=== PATIENT | male | born 1955 | race African-American/Black ===

== ENCOUNTER 2016-11-08 23:19 | Emergency (ER) | payer MEDICAID ==
[~2016-11-08] VITALS: Ht 162.6 cm; Wt 68.9 kg
[~2016-11-08 23:19] MED LIST: BACTRIM-DS1 EA ORAL; CEPHALEXIN500 MG ORAL; NKM; NORCO 5-325 TA1 EACH ORAL
[2016-11-09] MEDS ORDERED: Oxycodone/Acetaminophen 5-325 ORAL ONE
[2016-11-09 00:41] LABS: BASOPHILS % (AUTO) 0.7 % (0.0-2.0); EOSINOPHILS % (AUTO) 1.7 % (0.0-3.0); LYMPHOCYTES % (AUTO) 17.5 % (20.0-45.0); MEAN CORPUSCULAR HGB CONC 33.4 G/DL (32.0-36.0); MEAN CORPUSCULAR VOLUME 93 FL (80-99); MEAN PLATELET VOLUME 9.4 FL (6.5-10.1); MONOCYTES % (AUTO) 7.9 % (1.0-10.0); NEUTROPHILS % (AUTO) 72.2 % (45.0-75.0); PLATELET COUNT 227 K/UL (150-450); RED BLOOD COUNT 4.65 M/UL (4.70-6.10); RED CELL DISTRIBUTION WIDTH 12.5 % (11.6-14.8); WHITE BLOOD COUNT 5.5 K/UL (4.8-10.8)
[2016-11-09 00:59] LABS: ALANINE AMINOTRANSFERASE 19 U/L (3-41); ANION GAP 14 (5-15); ASPARTATE AMINO TRANSFERASE 22 U/L (5-40); CALCIUM 8.7 mg/dL (8.6-10.2); CARBON DIOXIDE 25 mEQ/L (20-30); CHLORIDE 100 mEQ/L (98-107); CREATININE 1.4 mg/dL (0.7-1.2); GLOMERULAR FILTRATION RATE > 60 mL/min (>60); HEMOLYSIS 4; POTASSIUM 3.8 mEQ/L (3.4-4.9); SODIUM 139 mEQ/L (135-145); TOTAL PROTEIN 6.5 g/dL (6.6-8.7)
[2016-11-09 01:11] VITALS: BP 107/59
[2016-11-09 01:56] LABS: URIC ACID 4.3 mg/dL (3.0-7.5)
[2016-11-09 01:57] LABS: ERYTHROCYTE SEDIMENTATION RATE 20 MM/HR (0-20)
[2016-11-09] MEDS ORDERED: Morphine Sulfate 2mg/ml Inj IVP ONE (02:00)
[2016-11-09 02:57] VITALS: BP 102/57
--- NOTE | 2016-11-09 03:19 | Emergency Room Report ---
History of Present Illness General Chief Complaint: Pain Source: Patient Present Illness HPI Patient presents with non-traumatic R hip pain for several days. It is 10/10, constant and worsened when he bend at hip. No fevers. He's taken his 's [place] with good relief. Never before. It radiates to the back of his thigh and knee. No weakness. He denies back pain. No fevers or dysuria. No change in bowels. No weakness or numbness. Affects his walking. Allergic to motrin. No chest pain, dyspnea, NVD. No h/o gout or arthritis. Allergies: Coded Allergies: IBUPROFEN (Verified Allergy, 04/11/13) Patient History Past Medical History: see triage record Social History: Reports: smoking - prior Social History Narrative Reviewed Nursing Documentation: PMH: Agreed, PSxH: Agreed Nursing Documentation-PMH Past Medical History: No Stated History Review of Systems All Other Systems: negative except mentioned in HPI Physical Exam Vital Signs Date Time Temp Pulse Resp B/P Pulse Ox O2 Delivery O2 Flow Rate FiO2 11/08/16 23:29 98.2 100 16 145/78 97 Room Air Sp02 EP Interpretation: reviewed, normal General Appearance: well appearing, no apparent distress, GCS 15 Head: normocephalic Eyes: bilateral eye normal inspection ENT: moist mucus membranes Neck: supple Respiratory: lungs clear, normal breath sounds Cardiovascular #1: regular rate, rhythm Cardiovascular #2: 2+ radial (R) Gastrointestinal: normal inspection, normal bowel sounds, non tender, no mass, non-distended Musculoskeletal: back normal - but some increase when bends , gait/station normal, normal range of motion - with posterior thigh tenderness with hip flexion. No SI joint pain. Knee not tender, no calf tenderness, pelvis stable Neurologic: alert, oriented x3, motor strength/tone normal, DTRs symmetric, sensory intact Skin: normal inspection, warm/dry Medical Decision Making Diagnostic Impression: Primary Impression: Hip pain Qualified Codes: M25.551 - Pain in right hip Additional Impression: Suspected siatica ER Course Patient with non-traumatic hip pain. Ddx: gout, djd, sciatica amongst others. Inidication for labs and x-rays. Patient will be treated with percoet. Labs exclude gout and infection. Xrays with some DJD. Urine not given. States percocet "did nothing". Analgesia repeated. Improved. Repeat exam seems more consistent with sciatic component though not specific back component. Suggested further eval of back with CT or MRI. Patient stable for outpatient observation and treatment. Laboratory Tests Test 11/09/16 00:15 White Blood Count 5.5 K/UL (4.8-10.8) Red Blood Count 4.65 M/UL (4.70-6.10) L Hemoglobin 14.4 G/DL (14.2-18.0) Hematocrit 43.2 % (42.0-52.0) Mean Corpuscular Volume 93 FL (80-99) Mean Corpuscular Hemoglobin 31.0 PG (27.0-31.0) Mean Corpuscular Hemoglobin Concent 33.4 G/DL (32.0-36.0) Red Cell Distribution Width 12.5 % (11.6-14.8) Platelet Count 227 K/UL (150-450) Mean Platelet Volume 9.4 FL (6.5-10.1) Neutrophils (%) (Auto) 72.2 % (45.0-75.0) Lymphocytes (%) (Auto) 17.5 % (20.0-45.0) L Monocytes (%) (Auto) 7.9 % (1.0-10.0) Eosinophils (%) (Auto) 1.7 % (0.0-3.0) Basophils (%) (Auto) 0.7 % (0.0-2.0) Erythrocyte Sedimentation Rate 20 MM/HR (0-20) Sodium Level 139 mEQ/L (135-145) Potassium Level 3.8 mEQ/L (3.4-4.9) Chloride Level 100 mEQ/L (98-107) Carbon Dioxide Level 25 mEQ/L (20-30) Anion Gap 14 (5-15) Blood Urea Nitrogen 17 mg/dL (7-23) Creatinine 1.4 mg/dL (0.7-1.2) H Estimate Glomerular Filtration Rate > 60 mL/min (>60) Glucose Level 101 mg/dL (74-106) Uric Acid 4.3 mg/dL (3.0-7.5) Calcium Level 8.7 mg/dL (8.6-10.2) Total Bilirubin < 0.2 mg/dL (0.0-1.2) Aspartate Amino Transferase (AST) 22 U/L (5-40) Alanine Aminotransferase (ALT) 19 U/L (3-41) Alkaline Phosphatase 72 U/L (40-129) Total Creatine Kinase 122 U/L (38-174) Total Protein 6.5 g/dL (6.6-8.7) L Albumin 3.4 g/dL (3.5-5.2) L Globulin 3.1 g/dL Albumin/Globulin Ratio 1.0 (1.0-2.7) Chest X-Ray Diagnostic Results EP Interpretation: Yes Findings: no consolidation, no effusion, no pneumothorax, no acute cardiopulmonary disease Number of Views: 1 Other X-Ray Diagnostic Results Other X-Ray Diagnostic Results : X-Ray Ordered: R hip Findings: no fractures, no dislocation, no soft tissue swelling, other - some DJD Number of Views: 3 Last Vital Signs Date Time Temp Pulse Resp B/P Pulse Ox O2 Delivery O2 Flow Rate FiO2 11/09/16 03:32 98.3 77 17 102/57 98 Room Air Status: improved Disposition: HOME, SELF-CARE Condition: Improved Scripts Hydrocodone Bit/Acetaminophen 5-325* (NORCO 5-325*) 1 Each Tablet 1 TAB ORAL Q6H Y for For Pain, #10 TAB 0 Refills Prov: Jim Shabazz M.D. 11/09/16 Naproxen* (NAPROSYN*) 375 Mg Tablet 375 MG ORAL TWICE A DAY, #20 TAB 0 Refills Prov: Jim Shabazz M.D. 11/09/16 Referrals: ANNIE AU,REFERRING (PCP) Jim Shabazz M.D. Nov 09, 2016 03:19
[2016-11-09] MEDS ORDERED: NORCO 5-325 TA1 EACH ORAL (03:22)
[2016-11-09] MEDS ORDERED: NAPROXEN375 MG ORAL (03:22)
[2016-11-09 03:32] VITALS: BP 102/57
--- NOTE | 2016-11-09 11:41 | Diagnostic Imaging Report ---
Indication: PAIN Technique: One view of the chest Comparison: none Findings: Lungs and pleural spaces are clear. Heart size is normal. Impression: No acute process
--- NOTE | 2016-11-09 11:43 | Diagnostic Imaging Report ---
Indication: PAIN Technique: 2 views of the right hip Comparison: None Findings: No acute fractures. No dislocations. Joint spaces are preserved. Impression: Negative
== END 2016-11-09 03:34 | disposition home or self-care (01) ==
LOC: EMR 11-09 00:08
DX: M25.551 Pain in right hip (principal); Z88.6 Allergy status to analgesic agent; F17.200 Nicotine dependence, unspecified, uncomplicated
CPT/HCPCS: 36415; 71010; 73502; 80053; 82550; 84550; 85025; 85651; 96374; 96375; 99284; J2270; J2405

== ENCOUNTER → 2017-02-11 | Emergency (ER) | payer MEDICAID ==
[~2017-02-11] VITALS: Ht 162.6 cm; Wt 77.1 kg
[~2017-02-11] MED LIST changes: +GABAPENTIN300 MG ORAL; +NAPROXEN375 MG ORAL; +NORCO 5-325 TA1 EAC1 ORAL; +Norco 10mg/325mg tab ORAL ONE
[2017-02-11 16:02] VITALS: BP 121/76
--- NOTE | 2017-02-11 17:05 | Emergency Room Report ---
History of Present Illness General Chief Complaint: Lower Extremity Injury Source: Patient Present Illness HPI The patient is a 61-year-old male with a history of chronic back pain presenting for back pain. He denies any recent injury to the back. Pain is described as a 10 out of 10 dull ache to the mid lower back and radiates down the right leg. He states that he usually takes [place] for the pain but has run out. He has an appointment with his primary doctor within the next week. He denies any other symptoms including N, V, F , abd pain, CP, SOB Allergies: Coded Allergies: IBUPROFEN (Verified Allergy, 04/11/13) Patient History Past Medical History: see triage record Pertinent Family History: none Reviewed Nursing Documentation: PMH: Agreed, PSxH: Agreed Nursing Documentation-PMH Past Medical History: No Stated History Review of Systems All Other Systems: negative except mentioned in HPI Physical Exam Vital Signs Date Time Temp Pulse Resp B/P Pulse Ox O2 Delivery O2 Flow Rate FiO2 02/11/17 15:25 98.2 109 20 121/76 96 Room Air Sp02 EP Interpretation: reviewed, normal General Appearance: no apparent distress, alert, GCS 15, non-toxic Head: normocephalic, atraumatic Eyes: bilateral eye PERRL, bilateral eye normal inspection ENT: hearing grossly normal, normal pharynx, no angioedema, normal voice Neck: full range of motion, supple/symm/no masses Respiratory: chest non-tender, lungs clear, normal breath sounds, speaking full sentences Musculoskeletal: back normal, gait/station normal, normal range of motion, tender - TTP over the lumbar region diffusely Neurologic: alert, oriented x3, responsive, motor strength/tone normal, sensory intact, speech normal Psychiatric: judgement/insight normal, memory normal, mood/affect normal, no suicidal/homicidal ideation Skin: normal color, no rash, warm/dry, well hydrated Medical Decision Making PA Attestation Dr. Daly is my supervising physician. Patient management was discussed with my supervising physician Diagnostic Impression: Primary Impression: Sciatica Qualified Codes: M54.31 - Sciatica, right side Additional Impression: Chronic pain Qualified Codes: G89.29 - Other chronic pain ER Course The patient is a 61-year-old male with a history of chronic back pain presenting for back pain Ddx considered include but not limited to lumbar strain, degenerative disease, chronic pain, narcotic dependency PE: vitals WNL. NAD There is diffuse tender to palpation over the lumbar region. No step-offs. Normal gait. The patient will be given a limited prescription for [place] and needs to followup with primary doctor. He was informed that he needs pain management for further care. ER precautions given Last Vital Signs Date Time Temp Pulse Resp B/P Pulse Ox O2 Delivery O2 Flow Rate FiO2 02/11/17 16:31 98.2 02/11/17 16:02 78 20 121/76 96 Room Air Status: improved Disposition: HOME, SELF-CARE Condition: Improved Scripts Hydrocodone Bit/Acetaminophen 5-325* (NORCO 5-325 TABLET*) 1 Each Tablet 1 TAB ORAL Q6HR Y for For Pain, #10 TAB Prov: DAMASO JOHNSON 02/11/17 Gabapentin* (GABAPENTIN*) 300 Mg Capsule 300 MG ORAL THREE TIMES A DAY, #30 CAP 0 Refills Prov: DAMASO JOHNSON 02/11/17 Patient Instructions: Chronic Pain Additional Instructions: I discussed my findings with the patient. All questions and concerns have been answered. Treatment and medication compliance have been addressed. I advised the patient that they need to follow up with PMD in 3-5 days. Return to ED if symptoms worsen, new symptoms arise, or if needed for any reason. Patient verbalized understanding of discharge instructions. Please follow up with pain management for further care. DAMASO JOHNSON Feb 11, 2017 17:05
== END | disposition home or self-care (01) ==
LOC: EMR 16:02
DX: M54.40 Lumbago with sciatica, unspecified side (principal); Z88.6 Allergy status to analgesic agent
CPT/HCPCS: 99284

== ENCOUNTER 2017-04-10 16:07 | Inpatient (IN) | payer MEDICAID ==
[~2017-04-10] VITALS: Ht 162.6 cm; Wt 70.3 kg
[~2017-04-10 16:07] MED LIST changes: -Norco 10mg/325mg tab ORAL ONE
[2017-04-10 16:25] VITALS: BP 156/67
[2017-04-10] MEDS ORDERED: Morphine Sulfate 4mg/ml Inj IVP ONE ×2 (16:45→17:45)
[2017-04-10] MEDS ORDERED: Famotidine 20 MG/ 2ML VIAL IVP ONE (16:45)
[2017-04-10 17:15] LABS: MEAN CORPUSCULAR HGB CONC 32.5 G/DL (32.0-36.0); MEAN CORPUSCULAR VOLUME 95 FL (80-99); MEAN PLATELET VOLUME 10.2 FL (6.5-10.1); PLATELET COUNT 226 K/UL (150-450); RED BLOOD COUNT 4.81 M/UL (4.70-6.10); RED CELL DISTRIBUTION WIDTH 12.5 % (11.6-14.8); WHITE BLOOD COUNT 13.7 K/UL (4.8-10.8)
[2017-04-10 17:30] VITALS: BP 148/75
[2017-04-10 17:33] LABS: ALANINE AMINOTRANSFERASE 16 U/L (3-41); ALBUMIN/GLOBULIN RATIO 1.1 (1.0-2.7); ANION GAP 14 (5-15); ASPARTATE AMINO TRANSFERASE 25 U/L (5-40); CALCIUM 9.5 mg/dL (8.6-10.2); CARBON DIOXIDE 24 mEQ/L (20-30); CHLORIDE 103 mEQ/L (98-107); CREATININE 1.4 mg/dL (0.7-1.2); GLOMERULAR FILTRATION RATE > 60 mL/min (>60); HEMOLYSIS 49; LIPASE 24 U/L (< 60); SODIUM 141 mEQ/L (135-145); TOTAL PROTEIN 7.6 g/dL (6.6-8.7); TROPONIN I < 0.30 ng/mL (<=0.30)
[2017-04-10 17:44] LABS: CKMB 3.9 ng/mL (< 6.7)
[2017-04-10] MEDS ORDERED: Metoclopramide 10mg/2ml Inj IVP ONE (17:45)
[2017-04-10 18:24] LABS: BAND NEUTROPHILS % (MANUAL) 1 % (0-8); EOSINOPHILS % (MANUAL) 2 % (0-3); LYMPHOCYTES % (MANUAL) 13 % (20-45); NEUTROPHILS % (MANUAL) 79 % (45-75); TOTAL CELLS COUNTED 100
[2017-04-10 18:25] LABS: BASOPHILS % (MANUAL) 0 % (0-2); PLATELET ESTIMATE ADEQUATE; PLATELET MORPHOLOGY NORMAL
[2017-04-10 18:31] VITALS: BP 149/72
[2017-04-10 20:35] VITALS: BP 103/57
[2017-04-10 20:37] VITALS: BP 103/57
--- NOTE | 2017-04-10 21:39 | Emergency Room Report ---
History of Present Illness General Chief Complaint: Chest Pain Source: Patient Present Illness HPI 61-year-old male presents to ED for evaluation. Patient states he's been throwing up since this morning. Patient states there is epigastric pain, sharp , 9/10, nonradiating. Patient notes history of acid reflux. Patient states he feels chills and sweats. Denies any fever. Patient denies any chest pain or shortness of breath. Denies any sick contacts or recent travel. No other aggravating relieving factors. Denies any other associated symptoms Allergies: Coded Allergies: IBUPROFEN (Verified Allergy, 04/11/13) Patient History Past Medical History: ulcer, GERD Past Surgical History: none Pertinent Family History: none Social History: Denies: smoking, alcohol use, drug use Immunizations: UTD Reviewed Nursing Documentation: PMH: Agreed, PSxH: Agreed Nursing Documentation-PMH Past Medical History: No History, Except For Review of Systems All Other Systems: negative except mentioned in HPI Physical Exam Vital Signs Date Time Temp Pulse Resp B/P (MAP) Pulse Ox O2 Delivery O2 Flow Rate FiO2 04/10/17 16:20 97.7 56 16 140/73 100 04/10/17 16:25 Room Air Sp02 EP Interpretation: reviewed, normal General Appearance: alert, GCS 15, non-toxic, mild distress Head: normocephalic, atraumatic Eyes: bilateral eye normal inspection, bilateral eye PERRL ENT: hearing grossly normal, normal pharynx, no angioedema, normal voice Neck: full range of motion, supple/symm/no masses Respiratory: chest non-tender, lungs clear, normal breath sounds, speaking full sentences Cardiovascular #1: regular rate, rhythm, no edema Cardiovascular #2: 2+ carotid (R), 2+ carotid (L), 2+ radial (R), 2+ radial (L) , 2+ dorsalis pedis (R), 2+ dorsalis pedis (L) Gastrointestinal: normal bowel sounds, soft, non-distended, no guarding, no rebound, tenderness Rectal: deferred Genitourinary: normal inspection, no CVA tenderness Musculoskeletal: back normal, gait/station normal, normal range of motion, non- tender Neurologic: alert, oriented x3, responsive, motor strength/tone normal, sensory intact, speech normal Psychiatric: judgement/insight normal, memory normal, mood/affect normal, no suicidal/homicidal ideation Reflexes: 3+ bicep (R), 3+ bicep (L), 3+ tricep (R), 3+ tricep (L), 3+ knee (R) , 3+ knee (L) Skin: normal color, no rash, warm/dry, well hydrated Lymphatic: no adenopathy Medical Decision Making Diagnostic Impression: Primary Impression: Gastritis Qualified Codes: K29.00 - Acute gastritis without bleeding Additional Impressions: Intractable vomiting with nausea Qualified Codes: R11.2 - Nausea with vomiting, unspecified Bradycardia ER Course Hospital Course 61-year-old male presents ED complaining of abdominal pain and vomiting Differential diagnoses include: BPH, cystitis, pyelonephritis, kidney stone Clinical course Patient placed on stretcher. hall monitor. After initial history and physical I ordered labs, IV fluids, UA, pain medication and CT scan Labs - no leukocytosis, Hb/Hct stable, electrolytes ok, trop negative CT abdomen and pelvis - diverticulosis, no diverticulitis EKG initially showed sinus bradycardia with first degree block On court monitor patient became more bradycardic to the 40s. Repeat EKG showed Mobitz type I. BP remained normal Patient denies any cardiac history I believe patient needs to be admitted for further workup and evaluation case discussed with Dr Gaspar I feel this is a highly complex case requiring extensive working including EKG/ Rhythm strip, Xray/CT/US, Blood/urine lab work, repeat exams while in ED, and administration of strong opiates/narcotics for pain control, admission to hospital or close patient follow up. Diagnosis - gastritis, intractable vomiting, bradycardia admitted to [facility] in serious condition Labs Test 04/10/17 16:58 White Blood Count 13.7 K/UL (4.8-10.8) Red Blood Count 4.81 M/UL (4.70-6.10) Hemoglobin 14.9 G/DL (14.2-18.0) Hematocrit 45.9 % (42.0-52.0) Mean Corpuscular Volume 95 FL (80-99) Mean Corpuscular Hemoglobin 31.0 PG (27.0-31.0) Mean Corpuscular Hemoglobin Concent 32.5 G/DL (32.0-36.0) Red Cell Distribution Width 12.5 % (11.6-14.8) Platelet Count 226 K/UL (150-450) Mean Platelet Volume 10.2 FL (6.5-10.1) Neutrophils (%) (Auto) % (45.0-75.0) Lymphocytes (%) (Auto) % (20.0-45.0) Monocytes (%) (Auto) % (1.0-10.0) Eosinophils (%) (Auto) % (0.0-3.0) Basophils (%) (Auto) % (0.0-2.0) Differential Total Cells Counted 100 Neutrophils % (Manual) 79 % (45-75) Lymphocytes % (Manual) 13 % (20-45) Monocytes % (Manual) 5 % (1-10) Eosinophils % (Manual) 2 % (0-3) Basophils % (Manual) 0 % (0-2) Band Neutrophils 1 % (0-8) Platelet Estimate Adequate Platelet Morphology Normal Red Blood Cell Morphology Normal Sodium Level 141 mEQ/L (135-145) Potassium Level 4.0 mEQ/L (3.4-4.9) Chloride Level 103 mEQ/L (98-107) Carbon Dioxide Level 24 mEQ/L (20-30) Anion Gap 14 (5-15) Blood Urea Nitrogen 21 mg/dL (7-23) Creatinine 1.4 mg/dL (0.7-1.2) Estimat Glomerular Filtration Rate > 60 mL/min (>60) Glucose Level 106 mg/dL (74-106) Calcium Level 9.5 mg/dL (8.6-10.2) Total Bilirubin 0.6 mg/dL (0.0-1.2) Aspartate Amino Transf (AST/SGOT) 25 U/L (5-40) Alanine Aminotransferase (ALT/SGPT) 16 U/L (3-41) Alkaline Phosphatase 71 U/L (40-129) Total Creatine Kinase 294 U/L (38-174) Creatine Kinase MB 3.9 ng/mL (< 6.7) Creatine Kinase MB Relative Index 1.3 Troponin I < 0.30 ng/mL (<=0.30) Total Protein 7.6 g/dL (6.6-8.7) Albumin 4.1 g/dL (3.5-5.2) Globulin 3.5 g/dL Albumin/Globulin Ratio 1.1 (1.0-2.7) Lipase 24 U/L (< 60) EKG Diagnostic Results Rate: bradycardiac Rhythm: other - mobitz type I ST Segments: no acute changes ASA given to the pt in ED: No Rhythm Strip Diag. Results EP Interpretation: yes Rhythm: NSR, no PVC's, no ectopy CT/MRI/US Diagnostic Results CT/MRI/US Diagnostic Results : Imaging Test Ordered: CT A/P Impression diverticulosis, no diverticulitis. no other acute process Last Vital Signs Date Time Temp Pulse Resp B/P (MAP) Pulse Ox O2 Delivery O2 Flow Rate FiO2 04/10/17 20:37 97.9 70 14 103/57 97 Room Air 75 Status: improved Disposition: ADMITTED INPATIENT Condition: Serious Referrals: ANNIE AU,REFERRING (PCP) LOUIS CHOUDHARY M.D. Apr 10, 2017 21:39
[2017-04-10] MEDS ORDERED: Zolpidem 5mg tab ORAL PRN (22:30)
[2017-04-10 23:25] VITALS: BP 112/59
[2017-04-11 00:37] VITALS: BP 118/52
[2017-04-11] MEDS: D5 1/2NS 1,000 ML IV SCH ×2 (01:34→12:06)
[2017-04-11 04:00] VITALS: BP 106/65
[2017-04-11 05:23] LABS: BASOPHILS % (AUTO) 0.7 % (0.0-2.0); EOSINOPHILS % (AUTO) 1.8 % (0.0-3.0); LYMPHOCYTES % (AUTO) 25.2 % (20.0-45.0); MEAN CORPUSCULAR HEMOGLOBIN 31.6 PG (27.0-31.0); MEAN CORPUSCULAR HGB CONC 32.9 G/DL (32.0-36.0); MEAN CORPUSCULAR VOLUME 96 FL (80-99); MONOCYTES % (AUTO) 7.4 % (1.0-10.0); NEUTROPHILS % (AUTO) 64.9 % (45.0-75.0); PLATELET COUNT 196 K/UL (150-450); RED BLOOD COUNT 4.44 M/UL (4.70-6.10); RED CELL DISTRIBUTION WIDTH 12.9 % (11.6-14.8); WHITE BLOOD COUNT 9.2 K/UL (4.8-10.8)
[2017-04-11 07:43] LABS: ANION GAP 12 (5-15); CALCIUM 8.8 mg/dL (8.6-10.2); CARBON DIOXIDE 24 mEQ/L (20-30); CHLORIDE 106 mEQ/L (98-107); CREATININE 1.1 mg/dL (0.7-1.2); GLOMERULAR FILTRATION RATE > 60 mL/min (>60); HEMOLYSIS 5; POTASSIUM 3.6 mEQ/L (3.4-4.9); SODIUM 142 mEQ/L (135-145)
[2017-04-11 07:50] LABS: CHOLESTEROL 185 mg/dL (< 200); CHOLESTEROL/HDL RATIO 2.7 (3.3-4.4); LDL CHOLESTEROL (CALC.) 105 mg/dL (60-99)
[2017-04-11 08:00] VITALS: BP 117/64
[2017-04-11] MEDS: Pantoprazole Inj IV SCH (08:23)
[2017-04-11] MEDS ORDERED: Tubing IV Secondary IV ONE (10:05)
[2017-04-11] MEDS ORDERED: D5 1/2NS 1000ml IV ONE (10:05)
--- NOTE | 2017-04-11 10:21 | Diagnostic Imaging Report ---
Indication: Abdominal pain Technique: Continuous helical transaxial imaging of the abdomen and pelvis was obtained from the lung bases to the pubic symphysis during intravenous contrast administration. Coronal 2-D reformats were also obtained. Study obtained in a Siemens sensation [address] Total Dose length Product (DLP): [address] Dose Index Volume (CTDIvol): 0.15, 11.63 mGy Comparison: None Findings: Partially imaged bolus changes noted at the medial periphery of the left lower lobe. Mild subsegmental posterior basilar atelectasis demonstrated. Multiple liver cysts are present. Some hypodensities are too small to characterize. The appendix is normal. There is no free fluid or free air. Bilateral inguinal hernias containing fat are demonstrated. No evidence of bowel obstruction. Arterial calcification noted within the aorta. Kidneys are unremarkable bilaterally. No abnormalities of the spleen or pancreas identified. Impression: No acute findings in the abdomen or pelvis. Normal appendix Diverticulosis. Bilateral inguinal hernias containing fat. Mild basilar atelectasis Multiple liver hypodensities mostly appears to be cysts. Some are too small to characterize. Chronic lung changes as described above The CT scanner at is accredited by the [employer] and the scans are performed using dose optimization techniques as appropriate to a performed exam including Automatic Exposure control.
--- NOTE | 2017-04-11 10:31 | History & Physical ---
History and Physical History & Physicial HP dictated # [id number] DAVID COHN Apr 11, 2017 10:31
[2017-04-11 11:58] VITALS: BP 127/71
--- NOTE | 2017-04-11 14:34 | Cardiology Progress Note ---
Assessment/Plan Assessment/Plan [id number] atypical chest apin lasting only seond nausea / vomit ./ abd pain mobitz1 2nd degree avb loke due to increased vagal tone repeat cardiac enzyme tele has hsown resolution of darnell avb no long feel stolach sx want to go home Objective Last 24 Hour Vital Signs Date Time Temp Pulse Resp B/P (MAP) Pulse Ox O2 Delivery O2 Flow Rate FiO2 04/11/17 12:00 65 04/11/17 11:58 98.6 72 21 127/71 95 Room Air 04/11/17 08:00 74 04/11/17 08:00 97.9 75 21 117/64 96 Room Air 04/11/17 04:00 54 04/11/17 04:00 98.1 69 20 106/65 97 Room Air 04/11/17 00:40 97.9 72 16 112/59 98 Room Air 72 04/11/17 00:37 99.0 79 20 118/52 96 Room Air 04/10/17 23:25 97.9 72 16 112/59 98 Room Air 72 04/10/17 20:37 97.9 70 14 103/57 97 Room Air 75 04/10/17 20:35 97.9 75 14 103/57 97 Room Air 04/10/17 18:31 97.9 70 17 149/72 97 Room Air 04/10/17 17:30 97.8 48 22 148/75 100 Room Air 04/10/17 16:25 53 21 Room Air 04/10/17 16:25 98.0 53 21 156/67 99 Room Air 04/10/17 16:20 97.7 56 16 140/73 100 Intake and Output 04/11/17 04/12/17 19:00 07:00 Intake Total 260 ml Output Total 150 ml Balance 110 ml Intake Oral 260 ml Output Urine Total 150 ml Laboratory Tests Test 04/10/17 16:58 04/11/17 04:05 White Blood Count 13.7 K/UL (4.8-10.8) H 9.2 K/UL (4.8-10.8) Red Blood Count 4.81 M/UL (4.70-6.10) 4.44 M/UL (4.70-6.10) L Hemoglobin 14.9 G/DL (14.2-18.0) 14.0 G/DL (14.2-18.0) L Hematocrit 45.9 % (42.0-52.0) 42.6 % (42.0-52.0) Mean Corpuscular Volume 95 FL (80-99) 96 FL (80-99) Mean Corpuscular Hemoglobin 31.0 PG (27.0-31.0) 31.6 PG (27.0-31.0) H Mean Corpuscular Hemoglobin Concent 32.5 G/DL (32.0-36.0) 32.9 G/DL (32.0-36.0) Red Cell Distribution Width 12.5 % (11.6-14.8) 12.9 % (11.6-14.8) Platelet Count 226 K/UL (150-450) 196 K/UL (150-450) Mean Platelet Volume 10.2 FL (6.5-10.1) H 9.0 FL (6.5-10.1) Neutrophils (%) (Auto) % (45.0-75.0) 64.9 % (45.0-75.0) Lymphocytes (%) (Auto) % (20.0-45.0) 25.2 % (20.0-45.0) Monocytes (%) (Auto) % (1.0-10.0) 7.4 % (1.0-10.0) Eosinophils (%) (Auto) % (0.0-3.0) 1.8 % (0.0-3.0) Basophils (%) (Auto) % (0.0-2.0) 0.7 % (0.0-2.0) Differential Total Cells Counted 100 Neutrophils % (Manual) 79 % (45-75) H Lymphocytes % (Manual) 13 % (20-45) L Monocytes % (Manual) 5 % (1-10) Eosinophils % (Manual) 2 % (0-3) Basophils % (Manual) 0 % (0-2) Band Neutrophils 1 % (0-8) Platelet Estimate Adequate Platelet Morphology Normal Red Blood Cell Morphology Normal Sodium Level 141 mEQ/L (135-145) 142 mEQ/L (135-145) Potassium Level 4.0 mEQ/L (3.4-4.9) 3.6 mEQ/L (3.4-4.9) Chloride Level 103 mEQ/L (98-107) 106 mEQ/L (98-107) Carbon Dioxide Level 24 mEQ/L (20-30) 24 mEQ/L (20-30) Anion Gap 14 (5-15) 12 (5-15) Blood Urea Nitrogen 21 mg/dL (7-23) 14 mg/dL (7-23) Creatinine 1.4 mg/dL (0.7-1.2) H 1.1 mg/dL (0.7-1.2) Estimat Glomerular Filtration Rate > 60 mL/min (>60) > 60 mL/min (>60) Glucose Level 106 mg/dL (74-106) 103 mg/dL (74-106) Calcium Level 9.5 mg/dL (8.6-10.2) 8.8 mg/dL (8.6-10.2) Total Bilirubin 0.6 mg/dL (0.0-1.2) Aspartate Amino Transf (AST/SGOT) 25 U/L (5-40) Alanine Aminotransferase (ALT/SGPT) 16 U/L (3-41) Alkaline Phosphatase 71 U/L (40-129) Total Creatine Kinase 294 U/L (38-174) H Creatine Kinase MB 3.9 ng/mL (< 6.7) Creatine Kinase MB Relative Index 1.3 Troponin I < 0.30 ng/mL (<=0.30) Total Protein 7.6 g/dL (6.6-8.7) Albumin 4.1 g/dL (3.5-5.2) Globulin 3.5 g/dL Albumin/Globulin Ratio 1.1 (1.0-2.7) Lipase 24 U/L (< 60) Triglycerides Level 58 mg/dL (< 150) Cholesterol Level 185 mg/dL (< 200) LDL Cholesterol 105 mg/dL (60-99) H HDL Cholesterol 68 mg/dL (> 60) H Cholesterol/HDL Ratio 2.7 (3.3-4.4) L Thyroid Stimulating Hormone (TSH) 1.780 uIU/mL (0.300-4.500) MARIA T RUBIO Apr 11, 2017 14:34
[2017-04-11 15:59] LABS: TROPONIN I < 0.30 ng/mL (<=0.30)
[2017-04-11 16:00] VITALS: BP 121/68
--- NOTE | 2017-04-11 18:00 | History and Physical Report ---
DATE OF ADMISSION: 04/10/2017 CHIEF COMPLAINT: Nausea, vomiting and abdominal pain. History Of Present Illness: This is a 61-year-old male with history of peptic ulcer disease years ago. He came in with severe abdominal pain in the epigastric area and repeated vomiting since 9 o'clock yesterday morning. The patient started to feel a little bit dizzy after his vomiting started. He was seen in the emergency room and also was found to be somewhat bradycardic and his EKG is Mobitz type 1 and heart rate in 40s. The patient denies previous history of heart problems. He does have history of back pain for which he was taking [place], but he may have also taken naproxen, although he is not sure. Past Medical History: History of peptic ulcer disease and gastroesophageal reflux disease. MEDICATIONS: Reviewed in the EMR. ALLERGIES: The patient is intolerant to ibuprofen. Social History: No history of smoking or alcohol abuse. The patient lives with . REVIEW OF SYSTEMS: Noncontributory except what was mentioned. PHYSICAL EXAMINATION: General: This is a 61-year-old male, in no acute distress. Currently, he does not have any nausea, vomiting or abdominal pain. Vital Signs: Blood pressure 117/64, pulse 75, respiratory rate is 21, and temperature 97.9 degrees. HEENT: [place] conjunctivae. Anicteric sclerae. NECK: Supple. LUNGS: Clear to auscultation. HEART: S1 and S2 without murmurs or rubs. ABDOMEN: Soft and nontender. EXTREMITIES: No cyanosis or edema. Laboratory And Diagnostic Data: As of admission, the CBC shows a WBC of 13.7, hematocrit 42, hemoglobin 14.9, and platelets 226,000. Chemistry panel shows a sodium 141, potassium 4, chloride 103, CO2 24, glucose is 106, BUN 21, and creatinine 1.4. The repeat the serum creatinine is 1.1 today and WBC is down to 9.2. Assessment: This is a 61-year-old white male, who was admitted with abdominal pain, nausea, and vomiting. It is possible that he was taking naproxen and this has triggered his symptoms of peptic ulcer disease. Overnight, he was given IV fluids as well as IV Protonix and he has improved and currently he does not have any symptom in terms of his Mobitz 1 and this has happened in the emergency room. He does not have any underlying history of heart disease that we know. Also, his heart rate is right now in sinus rhythm and not bradycardic. Plan: The patient will be on a regular diet today. I will continue with IV Protonix and IV fluids and we will get an echocardiogram to assess LV function, also need to rule out any valve abnormality. Cardiology consult will be obtained. Gibson Gaspar M.D. DR: MARTHA JOB#: [id number] CC:
[2017-04-11 20:00] VITALS: BP 121/68
--- NOTE | 2017-04-11 21:00 | Consultation ---
DATE OF CONSULTATION: 04/11/2017 CARDIOLOGY CONSULTATION CONSULTING PHYSICIAN: Ariel Hill M.D. REFERRING PHYSICIAN: Gibson Gaspar M.D. REASON FOR REFERRAL: Bradycardia. History Of Present Illness: This is a 61-year-old gentleman, who presented to the hospital because of abdominal pain. He had some food afterwards, he felt nauseated and vomited on several occasions, developed some abdominal pain, and developed some sharp shooting chest pain that lasted only a second, but would recur on several occasions. His vomiting and abdominal pain continues, so he presented to the emergency room. Apparently, he vomited several times here. During this hospital evaluation in the emergency room, he had several bouts of Mobitz 1 first-degree AV block and therefore he was admitted to the hospital for further evaluation. He has never had syncope or near syncope, neither does he have any of those when he was experiencing nausea and vomiting yesterday. He had no PND. No orthopnea. He uses two pillows. He does have occasional dizziness when he sits up or stands up. No heart pounding or palpitations and again, no other chest pains. No exertional chest pain. He is relatively active although to a certain degree, he is able to walk and he will be able to climb some stairs, but he has to stop because of his sciatica pain related issues, but to the point that he has been able to exercise, he does not experience any chest pain or shortness of breath. Past Medical History: Negative for diabetes or high blood pressure. No heart attack, cancer, stroke, hepatitis, tuberculosis, asthma, or emphysema. He does have a history of bleeding ulcers previously. No kidney problems, liver problems, thyroid problems, or anemia. He does have some arthritis. No other medical problems. No HIV or AIDS. ALLERGIES: He is not allergic to any medications. Social History: He used to smoke, but he quit that in July. He does not drink alcoholic beverages anymore and his last use of marijuana was approximately three days ago. Review Of Systems: Gastrointestinal: As mentioned in the history of present illness. No bloody stools or black tarry stools. Genitourinary: Negative. Pulmonary: Negative. Constitutional: Negative although he does have some fevers and chills at times. Neurologic: Negative. PHYSICAL EXAMINATION: General: Shows to be middle-aged gentleman, in no apparent respiratory distress. NECK: Supple. No jugular venous distention. LUNGS: Clear to auscultation and percussion. Cardiac: S1 is normal. S2 is normal. Regular rate and rhythm. No heaves, thrills, gallops, or rubs are noted. ABDOMEN: Soft and nontender. Positive bowel sounds. EXTREMITIES: No clubbing, cyanosis, nor is there any edema. Neurologic: He is awake, alert, responsive, and in no apparent respiratory distress. Laboratory Values: Initially white count 13.7, subsequently 9.2, hemoglobin 14, and platelet count of 196,000. Sodium is 142, potassium 3.6, chloride 106, bicarb 24, BUN 14, creatinine 1.1, glucose of 103, and calcium is 8.8. Total cholesterol 185 with a LDL of 105 and HDL of 68. TSH of 1.7. Lipase of 24. Troponin less than 0.01 on first occasion and the patient's electrocardiogram he had junctional sinus rhythm, he has on several EKGs one episode of Mobitz 1 second-degree AV block with one missed beats on several of EKGs that were all performed within a few minutes of each other last evening about 5:30 or so. Subsequently, his telemetry data shows complete sinus rhythm. There was no evidence of AV block or whatsoever. ASSESSMENT: 1. Nausea, vomiting, and abdominal pain. 2. Mobitz 1 second-degree AV block likely secondary to above. 3. Chest pain. Plan: Dr. Gaspar, this patient was seen in cardiac consultation. The patient's chest pains are very atypical lasting only one second and not appeared to be exertional related. His electrocardiogram is not showing any evidence of infarction or ischemia despite AV block. The first set of cardiac enzymes were negative. He will have a second set of cardiac enzymes. He is very anxious and wants to go home. At the time of his emergency room visit, he did have a CT scan that shows no acute findings, normal appendix, diverticulosis, bilateral inguinal hernias containing fat, mild basilar atelectasis, and multiple liver hypodensity that appeared to be mostly cysts, but too small to characterize, chronic lung changes noted on the EKG. I would recommend his second set of cardiac enzymes to document at least 24 hours later. His cardiac enzymes are negative. His blocks are likely secondary to recurrent nausea, vomiting, and vagally induced more likely than arrhythmias that seems to have resolved. No further indications. He may follow up with his primary care doctor to get referred to a specialist should he have recurrent symptoms and for further evaluation. Ariel Hill M.D. DR: DEBBI JOB#: [id number] CC:
[2017-04-12] VITALS: BP 122/70
[2017-04-12] MEDS: D5 1/2NS 1,000 ML IV SCH (01:52)
[2017-04-12 04:00] VITALS: BP 116/71
[2017-04-12 08:00] VITALS: BP 111/74
[2017-04-12] MEDS: Pantoprazole Inj IV SCH (08:06)
[2017-04-12] MEDS ORDERED: PROTONIX40 M2 GT (09:52)
--- NOTE | 2017-04-12 09:57 | Consultation ---
Consult Note Assessment/Plan Dc Dictated #[id number] DAVID COHN Apr 12, 2017 09:57
--- NOTE | 2017-04-12 19:08 | Cardiology Report ---
APPROVED REPORT EKG Measurement Heart [id number] Sinus bradycardia with type I, 2nd degree AV block Otherwise normal ECG
--- NOTE | 2017-04-13 04:30 | Discharge Summary ---
DATE OF ADMISSION: 04/10/2017 DATE OF DISCHARGE: 04/12/2017 Very poor audio. Gibson Gaspar M.D. DR: STACIA JOB#: [id number] CC:
--- NOTE | 2017-04-15 15:36 | Discharge Summary ---
Discharge Summary Hospital Course Date of Admission Apr 10, 2017 at 20:59 Date of Discharge Apr 12, 2017 at 12:00 Admitting Diagnosis bradycardia, abdominal pain HPI Michaela Hughes is a 61 year old male who was admitted on Apr 10, 2017 at 20:59 for Bradycardia,Abdominal Pain Hospital Course [id number] Discharge Discharge Disposition Patient was discharged to Home (01) Discharge Diagnoses: Brynn Figueredo NP Apr 15, 2017 15:36
--- NOTE | 2017-04-16 08:31 | Discharge Summary 2 SIG ---
DATE OF ADMISSION: 04/10/2017 DATE OF DISCHARGE: 04/12/2017 TOOL OR DIE DRAWING CHECKER: Ariel Hill M.D. Brief Hospital Course: The patient is a 61-year-old male with history of peptic ulcer disease, came in complaining of severe abdominal pain located in the epigastric area with repeated vomiting since the morning of admission. The patient felt a little bit dizzy. On evaluation at ED, he was found to be bradycardic. An EKG was in Mobitz type 1 and heart rate down to 40s. He denied any previous history of heart problems and has history of back pain for which he is taking [place] and naproxen. He was given IV fluids and IV Protonix. Cardiac evaluation was done. The patient was admitted to telemetry and he had several EKGs with Mobitz type 1 second-degree AV block. Subsequently, telemetry data showed complete sinus rhythm. Chest pains were atypical lasting only a second and not appear to be exertional related. Cardiac enzymes were negative. Heart blocks likely secondary to recurrent nausea with vomiting and vagally induced more likely than arrhythmia. He was then discharged home. Abdominal and pelvic CT showed no acute findings. He was advised to follow up with PMD as outpatient. FINAL DIAGNOSES: 1. Abdominal pain, nausea, and vomiting. 2. Bradycardia with findings of heart block vagally induced secondary to nausea and vomiting. DISPOSITION: The patient was discharged home. DISCHARGE MEDICATIONS: Refer to medication list. Gibson Gaspar M.D. I have been assigned to dictate discharge summary on this account and I was not involved in the patient's management. Brynn Figueredo N.P. DR: SARA JOB#: [id number] CC:
== END 2017-04-12 12:00 | disposition home or self-care (01) | DRG 201 ==
LOC: EMR 16:25 → 2W 20:59 → EDBEDREQ 23:44 → 2E 04-11 07:28
DX: I44.1 Atrioventricular block, second degree (principal); K21.9 Gastro-esophageal reflux disease without esophagitis; R10.9 Unspecified abdominal pain; R11.2 Nausea with vomiting, unspecified; R00.1 Bradycardia, unspecified; M54.30 Sciatica, unspecified side; Z87.891 Personal history of nicotine dependence; R07.89 Other chest pain
CPT/HCPCS: 36415; 74177; 80048; 80053; 80061; 82550; 82553; 82962; 83690; 84443; 84484; 85007; 85025; 93005; 99285; J2405; J2765

== ENCOUNTER 2018-03-16 20:43 | Emergency (ER) | payer MEDICAID ==
[~2018-03-16] VITALS: Ht 162.6 cm; Wt 78.0 kg
[~2018-03-16 20:43] MED LIST changes: +PROTONIX40 M2 GT
[2018-03-16 21:16] VITALS: BP 140/89
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
[2018-03-16] MEDS ORDERED: Norco 5mg/325mg tab ORAL ONE (21:30)
[2018-03-16] MEDS ORDERED: PERCOCET 5-3251 EACH ORAL (23:11)
[2018-03-16 23:30] VITALS: BP 128/90
--- NOTE | 2018-03-17 09:16 | Diagnostic Imaging Report ---
Indication: Pain, trauma Technique: CT chest was performed utilizing automated exposure control without intravenous contrast material. Axial sagittal and coronal images were generated. CT dose: Total DLP 728.4 mGycm; CTDI vol 19 mGy Comparison: None; relation made to CT of the abdomen and pelvis 04/10/2017 Findings: Emphysematous changes noted at the apices with some small subpleural blebs. There is dependent atelectasis in the posterior lower lobes bilaterally. There is linear scarring/atelectasis in the lingula. There is no focal airspace consolidation suggest pneumonia. No evidence to suggest lung contusion. No pleural effusion or pneumothorax. Heart size within normal limits. No pericardial effusion. Thoracic aorta is normal in caliber with only minimal calcification at the arch. Main pulmonary artery appears normal in caliber. No pathologically enlarged lymphadenopathy appreciated. Imaged thyroid grossly unremarkable. Multiple low-attenuation lesions noted within the liver, similar to the prior exam. Some are large enough to be characterized as simple cysts. The others are too small for definitive characterization but also likely represent small cysts or biliary hamartomas. No acute osseous abnormalities identified. Specifically no evidence of vertebral body compression fracture. Healing right-sided rib fracture identified. IMPRESSION: * No focal airspace consolidation, pleural effusion or pneumothorax. No evidence of suggest lung contusion. * Healing fracture of the right lateral 10th rib. No acute osseous normality. * Mild emphysematous changes at the apices. * Bibasilar dependent densities favored to represent atelectasis. * Multiple low-attenuation lesions in the liver, some which can be definitively characterized as simple cysts. Others are too small for definitive characterization. This corresponds with the statrad preliminary report. The CT scanner at [facility] is accredited by the [employer] and the scans are performed using protocols designed to limit radiation exposure to as low as reasonably achievable to attain images of sufficient resolution adequate for diagnostic evaluation.
--- NOTE | 2018-03-17 12:51 | Diagnostic Imaging Report ---
Indication: Pain status post injury Technique: XRAY C Spine 2-3v Comparison: None Findings: No definite acute fracture identified. Cervical lordosis is maintained. There are degenerative changes of the cervical spine with disc space narrowing and productive change. This is most pronounced at C5-C6. No evidence of the dens fracture. Imaged lung apices grossly clear. Rectangular metallic density is noted on some of the frontal views were changes position. It is not noted on the lateral views. Is likely external to the patient. Impression: Multilevel degenerative change of the cervical spine. No evidence of acute cervical spine fracture.
--- NOTE | 2018-03-17 12:57 | Diagnostic Imaging Report ---
Indication: Pain status post trauma Technique: XRAY Wrist Complete L Comparison: None Findings: Acute, comminuted and impacted fracture of the distal radius. There is some widening of the scapholunate interval. There is narrowing of the radiocarpal joint. There is soft tissue swelling about the distal wrist. No radiopaque foreign body identified. Impression: Acute fracture of the distal radius as above.
--- NOTE | 2018-03-18 00:38 | Cardiology Report ---
APPROVED REPORT EKG Measurement Heart [id number] Normal sinus rhythm Possible Left atrial enlargement Borderline ECG
== END 2018-03-16 23:30 | disposition home or self-care (01) ==
LOC: EMR 21:16
DX: S52.502A Unspecified fracture of the lower end of left radius, initial encounter for closed fracture (principal); S20.219A Contusion of unspecified front wall of thorax, initial encounter; M54.2 Cervicalgia; Z88.6 Allergy status to analgesic agent; V49.40XA Driver injured in collision with unspecified motor vehicles in traffic accident, initial encounter; Y92.410 Unspecified street and highway as the place of occurrence of the external cause
CPT/HCPCS: 71250; 72040; 72050; 93005; 99284

== ENCOUNTER 2018-04-11 08:42 | Emergency (ER) | payer MEDICAID ==
[~2018-04-11] VITALS: Ht 167.6 cm; Wt 72.6 kg
[~2018-04-11 08:42] MED LIST changes: +PERCOCET 5-3251 EACH ORAL
[2018-04-11 08:56] VITALS: BP 129/77
--- NOTE | 2018-04-11 09:19 | Emergency Room Report ---
History of Present Illness General Chief Complaint: Earache Source: Patient Present Illness HPI The patient states that he woke up this morning with bleeding from his right ear. He denies trauma to the ear. He denies use of a Q-tip or other object in the ear. He denies other bleeding. He denies come bleeding. He denies ear pain or headache. He has no other complaints. Allergies: Coded Allergies: IBUPROFEN (Verified Allergy, 04/11/13) Patient History Past Medical History: none, see triage record Social History: Reports: smoking; Denies: alcohol use, drug use Reviewed Nursing Documentation: PMH: Agreed; PSxH: Agreed Nursing Documentation-PMH Past Medical History: No History, Except For Hx Cardiac Problems: Yes Hx Cancer: No Hx Gastrointestinal Problems: Yes - sciatica Hx Neurological Problems: No Review of Systems All Other Systems: negative except mentioned in HPI Physical Exam Vital Signs Date Time Temp Pulse Resp B/P (MAP) Pulse Ox O2 Delivery O2 Flow Rate FiO2 04/11/18 08:47 97.7 99 18 129/77 99 Room Air 97.7 Sp02 EP Interpretation: reviewed, normal General Appearance: no apparent distress, alert, GCS 15, non-toxic Head: normocephalic, atraumatic Eyes: bilateral eye normal inspection, bilateral eye PERRL ENT: hearing grossly normal, normal pharynx, no angioedema, normal voice, other - R. ear, just proximal to the entrance to the external canal inferiorly there is a skin avulsion about 2mm in size. TM normal. OTW canal WNL. Neck: full range of motion, supple/symm/no masses Respiratory: no respiratory distress, no retraction, no accessory muscle use, speaking full sentences Cardiovascular #1: no edema Rectal: deferred Musculoskeletal: back normal, gait/station normal, normal range of motion Neurologic: alert, oriented x3, responsive, motor strength/tone normal, sensory intact, speech normal Psychiatric: judgement/insight normal, memory normal, mood/affect normal, no suicidal/homicidal ideation Skin: normal color, no rash, warm/dry, well hydrated Medical Decision Making Diagnostic Impression: Primary Impression: Laceration of external auditory canal ER Course The patient has an obvious skin avulsion that likely occurred from a scratch from a fingernail. It is just at the entrance to the external canal distally. There is no evidence of infection. I did place an ear wick that was saturated in topical antibiotics. The patient is instructed to remove the wick in 2 days. He is given infection precautions. No emergency medical condition is identified. Last Vital Signs Date Time Temp Pulse Resp B/P (MAP) Pulse Ox O2 Delivery O2 Flow Rate FiO2 04/11/18 08:56 97.7 18 129/77 99 Room Air 97.7 04/11/18 08:47 99 Disposition: HOME, SELF-CARE Condition: Improved Bre Lerner DO Apr 11, 2018 09:19
[2018-04-11 10:40] VITALS: BP 131/80
== END 2018-04-11 10:40 | disposition home or self-care (01) ==
LOC: EMR 09:28
DX: S01.311A Laceration without foreign body of right ear, initial encounter (principal); H92.21 Otorrhagia, right ear; F17.290 Nicotine dependence, other tobacco product, uncomplicated; Y33.XXXA Other specified events, undetermined intent, initial encounter; Y93.9 Activity, unspecified
CPT/HCPCS: 99282

== ENCOUNTER 2018-07-21 01:37 | Emergency (ER) | payer MEDICAID ==
[~2018-07-21] VITALS: Ht 165.1 cm; Wt 77.1 kg
[2018-07-21 01:45] VITALS: BP 121/63
[2018-07-21] MEDS ORDERED: Morphine Sulfate 10mg/ml Inj IVP ONE (02:00)
--- NOTE | 2018-07-21 02:02 | Emergency Room Report ---
History of Present Illness General Chief Complaint: Abdominal Pain Source: Patient, Medical Record Present Illness HPI This is a 62-year-old male with a history of ulcer. He presents with chief complaint of epigastric pain. Onset this afternoon. Pain is sharp in nature. Localized epigastric area and radiate diffusely. Has multiple episode vomiting. Able to take his [place]. No fever chills but no diarrhea. Vomiting is nonbloody and nonbilious. Similar symptom in the past. Pain is 9 out of 10. Allergies: Coded Allergies: IBUPROFEN (Verified Allergy, Unknown, 07/21/18) Patient History Past Medical History: see triage record, old chart reviewed Past Surgical History: other Pertinent Family History: none Social History: Denies: smoking, drug use Immunizations: other Reviewed Nursing Documentation: PMH: Agreed; PSxH: Agreed Nursing Documentation-PMH Past Medical History: No History, Except For Hx Cardiac Problems: Yes Hx Cancer: No Hx Gastrointestinal Problems: Yes - GASTRIC ULCERS Hx Neurological Problems: No Review of Systems Eye: Denies: eye pain, blurred vision ENT: Denies: ear pain, nose congestion, throat swelling Respiratory: Denies: cough, shortness of breath Cardiovascular: Denies: chest pain, palpitations Gastrointestinal: Reports: abdominal pain, nausea, vomiting; Denies: diarrhea Musculoskeletal: Denies: back pain, joint pain Skin: Denies: rash Neurological: Denies: headache, numbness Endocrine: Denies: increased thirst, increased urine Hematologic/Lymphatic: Denies: easy bruising All Other Systems: negative except mentioned in HPI Physical Exam Vital Signs Date Time Temp Pulse Resp B/P (MAP) Pulse Ox O2 Delivery O2 Flow Rate FiO2 07/21/18 01:38 97.7 90 18 121/63 96 Room Air vitals normal Sp02 EP Interpretation: reviewed, normal General Appearance: well appearing, no apparent distress, alert Head: normocephalic, atraumatic Eyes: bilateral eye PERRL, bilateral eye EOMI ENT: hearing grossly normal, normal pharynx Neck: full range of motion, supple, no meningismus Respiratory: chest non-tender, lungs clear, normal breath sounds Cardiovascular #1: regular rate, rhythm, no murmur Gastrointestinal: normal bowel sounds, no mass, no organomegaly, no bruit, non- distended, tenderness - Diffuse Musculoskeletal: back normal, gait/station normal, normal range of motion Psychiatric: mood/affect normal Skin: warm/dry Medical Decision Making Diagnostic Impression: Primary Impression: Abdominal pain Qualified Codes: R10.84 - Generalized abdominal pain Additional Impressions: Cocaine abuse Nausea & vomiting Qualified Codes: R11.2 - Nausea with vomiting, unspecified Dehydration ER Course Patient with abdominal pain with nausea and vomiting. CT scan unremarkable. He is positive for cocaine. He claimed that he doesn't use cocaine but was around people on [place] use cocaine. He said somehow got into his system. His pain may be secondary to drug abuse/withdrawal. After morphine he is pain-free now. Tolerating by mouth. Is eating a sandwich and drinking without a problem. We'll discharge home. Lab Results Impression labs unremarkable CT/MRI/US Diagnostic Results CT/MRI/US Diagnostic Results : Imaging Test Ordered: CT abdomen and pelvis Impression Read by radiologist. Unremarkable. Last Vital Signs Date Time Temp Pulse Resp B/P (MAP) Pulse Ox O2 Delivery O2 Flow Rate FiO2 07/21/18 01:38 97.7 90 18 121/63 96 Room Air Status: improved Disposition: HOME, SELF-CARE Condition: Stable Scripts Omeprazole Magnesium (PRILOSEC OTC) 20 Mg Tablet. 20 MG ORAL DAILY, #30 TAB Prov: Preston Garcia MD 07/21/18 Patient Instructions: Abdominal Pain, Adult Additional Instructions: Stop using drugs. Follow-up with rehabilitation and your doctor within 7 days. Return if worse. Preston Garcia MD Jul 21, 2018 02:02
[2018-07-21 02:54] LABS: HEMATOCRIT 54.7 % (42.0-52.0); MEAN CORPUSCULAR VOLUME 94 FL (80-99); PLATELET COUNT 237 K/UL (150-450); RED BLOOD COUNT 5.79 M/UL (4.70-6.10); RED CELL DISTRIBUTION WIDTH 12.9 % (11.6-14.8)
[2018-07-21] MEDS ORDERED: Morphine Sulfate 4mg/ml Inj (IV/IM USE ONLY) IVP ONE (03:00)
[2018-07-21 03:05] LABS: ANION GAP 15 mmol/L (5-15); BLOOD UREA NITROGEN 15 mg/dL (7-18); CALCIUM 10.5 MG/DL (8.5-10.1); CARBON DIOXIDE 27 MMOL/L (21-32); CHLORIDE 102 MMOL/L (98-107); CREATININE 1.6 MG/DL (0.55-1.30); POTASSIUM 3.4 MMOL/L (3.5-5.1); SODIUM 144 MMOL/L (136-145)
[2018-07-21 03:17] LABS: ALANINE AMINOTRANSFERASE 27 U/L (12-78); ALBUMIN 4.2 G/DL (3.4-5.0); ALBUMIN/GLOBULIN RATIO 0.7 (1.0-2.7); ALKALINE PHOSPHATASE 103 U/L (46-116); ASPARTATE AMINO TRANSFERASE 25 U/L (15-37)
[2018-07-21 04:33] LABS: APPEARANCE,URINE CLEAR; BILIRUBIN, URINE NEGATIVE (NEGATIVE); GLUCOSE, URINE (UA) NEGATIVE (NEGATIVE); KETONES,URINE 4+ (NEGATIVE); LEUKOCYTE ESTERASE ,URINE 1+ (NEGATIVE); NITRITE,URINE NEGATIVE (NEGATIVE); PH,URINE 7 (4.5-8.0); PROTEIN,URINE 2+ (NEGATIVE); UROBILINOGEN,URINE 1 MG/DL (0.0-1.0)
[2018-07-21 04:42] LABS: COLOR,URINE YELLOW
[2018-07-21] MEDS ORDERED: PRILOSEC OTC20 MG ORAL (05:21)
[2018-07-21 05:25] VITALS: BP 111/63
--- NOTE | 2018-07-21 08:55 | Diagnostic Imaging Report ---
Indication: Abdominal pain Technique: Noncontrast CT of the abdomen and pelvis utilizing automated exposure control. Axial, sagittal and coronal reformats presented. CT dose: Total DLP 553.38 mGycm; CTDI vol 11.26 mGy Comparison: 04/10/2017 Findings: Please note that evaluation of the abdominal and pelvic viscera and vascular structures is limited without the use of intravenous and oral contrast. Within these limitations the following observations are made: Bullous/emphysematous changes again noted in the medial lower lungs, left greater than right. There is dependent atelectasis in the lung bases. Heart size within normal limits. No pericardial effusion. Liver normal in size and contour. Multiple well-circumscribed low-attenuation lesions again noted in the liver, some which can be characterized as cysts. Others are too small for definitive characterization. There appear stable compared to the prior exam. No CT evident gallstones or pericholecystic inflammatory changes. No biliary ductal dilatation. Noncontrast evaluation of the spleen, adrenal glands and pancreas unremarkable. Kidneys appear symmetric in size. No urinary tract stone or hydronephrosis bilaterally. No perinephric stranding. Bladder unremarkable. Prostate and seminal vesicles grossly unremarkable. No free intraperitoneal air or fluid. No evidence of bowel obstruction or definite inflammatory changes in the mesentery. There is equivocal thickening of the colon which is likely related to underdistention. There is colonic diverticulosis without evidence of suggest an acute diverticulitis. The appendix is normal. Atherosclerotic calcifications noted in a normal caliber abdominal aorta. No pathologically enlarged/conglomerate lymphadenopathy identified. There is a small fat-containing inguinal hernia. Small bilateral fat-containing inguinal hernias. There are degenerative changes of the spine. No acute osseous abnormality identified. IMPRESSION: Limited exam without intravenous and oral contrast. Within these limitations: * Apparent thickening of portions of the colon likely related to underdistention. Possibility of a very mild colitis should be excluded clinically although thought less likely given lack of pericolonic inflammatory changes. * Diverticulosis without evidence of acute diverticulitis. * Normal appendix. Additional incidental findings as above, similar compared to the prior exam. This corresponds with the [facility] preliminary report. The CT scanner at [facility] is accredited by the [employer] and the scans are performed using protocols designed to limit radiation exposure to as low as reasonably achievable to attain images of sufficient resolution adequate for diagnostic evaluation.
== END 2018-07-21 05:25 | disposition home or self-care (01) ==
LOC: EMR 03:12
DX: R10.13 Epigastric pain (principal); F14.10 Cocaine abuse, uncomplicated; E86.0 Dehydration; R11.2 Nausea with vomiting, unspecified; Z88.6 Allergy status to analgesic agent
CPT/HCPCS: 36415; 74176; 80053; 80307; 81003; 83690; 85025; 96361; 96374; 96375; 99284; J2270; J2405